=== PATIENT | female | born 1990 | race Caucasian/White ===

== ENCOUNTER 2019-12-18 10:24 | Emergency (ER) | payer BC, MEDICAID ==
[~2019-12-18] VITALS: Ht 167.6 cm; Wt 81.6 kg
--- NOTE | 2019-12-18 10:41 | NUR ---
ERMD at bedside for MSE
[2019-12-18] MEDS ORDERED: ACETAMINOPHEN ES 500 MG TABLET ONE (10:54)
--- NOTE | 2019-12-18 10:56 | NUR ---
Patient went down to CT in stable condition.
[2019-12-18] MEDS ORDERED: ACETAMINOPHEN ES 500 MG TABLET PO ONE ×2 (11:00)
[2019-12-18 11:32] LABS: BASOPHILS % (AUTO) 0.5 % (0.0-2.0); EOSINOPHILS # (AUTO) 0.1 K/uL (0.0-0.7); EOSINOPHILS % (AUTO) 3.6 % (0.0-7.0); HEMOGLOBIN 10.7 g/dL (10.9-14.3); LYMPHOCYTES % (AUTO) 26.4 % (20.5-51.5); MEAN CORPUSCULAR HEMOGLOBIN 28.5 uug (24.7-32.8); MEAN CORPUSCULAR HGB CONC 33 g/dL (32.3-35.6); MEAN CORPUSCULAR VOLUME 85.4 fL (75.5-95.3); MONOCYTES # (AUTO) 0.3 K/uL (2.0-10.0); MONOCYTES % (AUTO) 9.1 % (0.0-11.0); NEUTROPHILS # (AUTO) 2.2 K/uL (1.8-8.9); NEUTROPHILS % (AUTO) 60.4 % (38.5-71.5); PLATELET COUNT (AUTO) 201 K/uL (179-408); RED BLOOD CELL COUNT(AUTO) 3.75 MIL/uL (3.63-4.92); WHITE BLOOD COUNT (AUTO) 3.6 K/uL (3.8-11.8)
[2019-12-18 11:39] LABS: CARBON DIOXIDE 25 mmol/L (21-32); CHLORIDE 107 mmol/L (98-107); CREATININE 0.5 mg/dL (0.6-1.3); GLUCOSE 82 mg/dL (74-106); UREA NITROGEN, BLOOD 9 mg/dL (7-18)
[2019-12-18 12:11] VITALS: BP 111/61
--- NOTE | 2019-12-18 12:11 | NUR ---
Patient discharged to home in stable conditon. Written and verbal after care instructions given. Patient verbalizes understanding of instructions. ALL BELONGINGS W/ PT. PT SELF-AMBULATED W/O DIFFICULTY.
== END 2019-12-18 12:11 | disposition home or self-care (01) ==
LOC: ER 10:24
DX: R51 Headache (principal); D72.819 Decreased white blood cell count, unspecified
CPT/HCPCS: 36415; 70450; 85025; A4663; A9150

== ENCOUNTER 2021-02-23 17:46 | Emergency (ER) | payer BC, OTHER ==
[~2021-02-23] VITALS: Ht 167.6 cm; Wt 77.1 kg
--- NOTE | 2021-02-23 18:36 | NUR ---
[email or web address], medical screening exam in progress
[2021-02-23] MEDS ORDERED: IBUPROFEN 600 MG TABLET PO ONE (18:45)
[2021-02-23] MEDS ORDERED: ONDANSETRON ODT 4 MG TAB.RAPDIS SL ONE (18:45)
[2021-02-23] MEDS ORDERED: ONDANSETRON ODT 4 MG TAB.RAPDIS ONE (18:46)
[2021-02-23] MEDS ORDERED: IBUPROFEN 600 MG TABLET ONE (18:46)
--- NOTE | 2021-02-23 18:59 | NUR ---
Patient is back from CT scan, pending results & disposition
[2021-02-23] MEDS ORDERED: HYDR-3980 PO (19:04)
[2021-02-23 19:08] VITALS: BP 121/68
--- NOTE | 2021-02-23 19:08 | NUR ---
Patient discharged to home in stable condition. Written and verbal after care instructions given. Patient verbalizes understanding of instructions. Stressed follow up or return to ER for worsening s/s.
== END 2021-02-23 19:08 | disposition home or self-care (01) ==
LOC: ER 17:47
DX: G44.319 Acute post-traumatic headache, not intractable (principal); F07.81 Postconcussional syndrome; R11.0 Nausea; Z86.16 Personal history of COVID-19; W18.2XXS Fall in (into) shower or empty bathtub, sequela
CPT/HCPCS: 70450; A4663; Q0162

== ENCOUNTER 2021-06-17 13:36 | Emergency (ER) | payer BC, OTHER ==
[~2021-06-17] VITALS: Ht 165.1 cm; Wt 77.1 kg
[~2021-06-17 13:36] MED LIST: HYDR-3980 PO
[2021-06-17] MEDS ORDERED: IV NORMAL SALINE 500 ML BAG IV ONE (14:45)
[2021-06-17] MEDS ORDERED: METOCLOPRAMIDE HCL 10 MG/2 ML VIAL IV ONE (14:45)
[2021-06-17] MEDS ORDERED: ACETAMINOPHEN 325 MG TABLET ONE (14:49)
[2021-06-17] MEDS ORDERED: ACETAMINOPHEN 325 MG TABLET PO ONE (15:30)
--- NOTE | 2021-06-17 16:23 | NUR ---
PT WAS EVALUATED BY DR LITTLEJOHN. PT WAS D/C'd TO HOME. D/C INSTRUCTIONS GIVEN TO THE PT by dr Littlejohn.
[2021-06-17] MEDS ORDERED: MIDAZOLAM HCL 2 MG/2 ML VIAL ONE (16:37)
[2021-06-17 16:42] VITALS: BP 128/78
== END 2021-06-17 16:56 | disposition home or self-care (01) ==
LOC: ER 13:36
DX: R51.9 Headache, unspecified (principal); R42 Dizziness and giddiness; Z86.16 Personal history of COVID-19; Z87.820 Personal history of traumatic brain injury; Z87.11 Personal history of peptic ulcer disease
CPT/HCPCS: 70450; A4663; J2250